=== PATIENT | female | born 2005 | race Asian ===

== ENCOUNTER 2023-10-15 14:47 | Emergency (ER) | payer OTHER ==
[~2023-10-15] VITALS: Ht 160 cm; Wt 54.5 kg
[2023-10-15 14:57] VITALS: TEMP 98.3
[2023-10-15 16:55] VITALS: BP 125/80; O2SAT 98
== END 2023-10-15 16:55 | disposition home or self-care (01) ==
LOC: M ED 14:47 → EDBD 14:47 → M ED 16:55
DX: M54.50 Low back pain, unspecified (principal); M54.2 Cervicalgia; V49.10XA Passenger injured in collision with unspecified motor vehicles in nontraffic accident, initial encounter; Y92.410 Unspecified street and highway as the place of occurrence of the external cause; Y93.89 Activity, other specified; Y99.9 Unspecified external cause status